=== PATIENT | male | born 1985 | race Caucasian/White ===

== ENCOUNTER → 2022-11-20 | Day surgery (SDC) | payer BC ==
[~2022-11-20] MED LIST: Dexamethasone 4 MG/ML 5 ML MDV ONE; Dexmedetomidine 200 MCG/2 ML SDV ONE; EPINEPHrine 1 MG/ML SDV ONE; HYDROmorphone 0.5 MG/0.5 ML Syringe IVPUSH PRN; Ketorolac 30 MG/ML SDV ONE; Lactated Ringers 1,000 ML IV SCH; Lactated Ringers 1,000 ML ONE; Lidocaine 1% 5 ML VIAL ONE; Midazolam 1 MG/ML 2 ML SDV ONE; Neostigmine Methylsulfate 10 MG/10 ML MDV ONE; Ondansetron 4 MG/2 ML SDV IVPUSH PRN; Ondansetron 4 MG/2 ML SDV ONE; Propofol 200 MG/20 ML SDV ONE; Rocuronium 50 MG/5 ML Vial ONE; Ropivacaine 0.5% 5 MG/ML 30 ML SDV ONE; Sodium Chloride 0.9% 10 ML Syringe FLUSH PRN; ceFAZolin 2 GM Vial ONE; fentaNYL 100 MCG/2 ML SDV IVPUSH PRN; fentaNYL 250 MCG/5 ML SDV ONE
== END | disposition home or self-care (01) ==
LOC: JD.SDS 08:57
PROVIDERS: ATTEND Orthopaedic Surgery
DX: S42.022A Displaced fracture of shaft of left clavicle, initial encounter for closed fracture (principal); Z87.891 Personal history of nicotine dependence; V86.56XA Driver of dirt bike or motor/cross bike injured in nontraffic accident, initial encounter
CPT/HCPCS: 23515; 64415; 76000; C1713; J0171; J0690; J1100; J1885; J2250; J2405; J2704; J2710; J2795; J3010; J7120; 00450; J3490